=== PATIENT | male | born 2005 | race Caucasian/White ===

== ENCOUNTER 2025-02-13 19:42 | Emergency (ER) | payer SELFPAY ==
[2025-02-13 19:42] VITALS: BP 182/78; PULSE 80; RESP 18; TEMP 36.3; O2SAT 98
--- NOTE | 2025-02-13 20:06 | ED_ITS ---
HPI - General Adult General Chief complaint: Unspecified Stated complaint: rabies vaccine Time Seen by Provider: 02/13/25 19:51 Source: patient Mode of arrival: ambulatory Limitations: no limitations History of Present Illness HPI narrative: Patient is a 19-year-old male with exposure to bats at home but has not been bit by an animal. [facility] had him come to the ER to get pre exposure treatment. Onset (ago): week(s) Radiation: non-radiation Quality: other ( No pain) Pain Consistency: other ( no pain) Relieving factors: none Exacerbating factors: none Associated symptoms: denies other symptoms Treatments prior to arrival: none Related Data Allergies Allergy/AdvReac Type Severity Reaction Status Date / Time No Known Allergies Allergy Verified 02/13/25 20:09 Review of Systems Review of Systems: All systems reviewed & are unremarkable except as noted in HPI and below Constitutional: Constitutional: Reports no additional constitutional complaints Eyes: Eyes: Reports no additional eye complaints ENT: Reports system reviewed and no additional complaints, except as documented Cardiovascular: Cardiovascular: Reports no additional cardiovascular complaints Respiratory: Respiratory: Reports no additional respiratory complaints Gastrointestinal: Gastrointestinal: Reports no additional gastrointestinal complaints Genitourinary: Genitourinary: Reports no additional male genitourinary complaints Musculoskeletal: Musculoskeletal: Reports no additional musculoskeletal complaints Integumentary/Breasts: Skin/Breast: Reports system reviewed and no additional complaints, except as docu Neurologic: Reports system reviewed and no additional complaints, except as documented Psychiatric: Psychiatric: Reports no additional psychiatric complaints Endocrine: Endocrine: Reports no additional endocrine complaints Hematologic/Lymphatic: Hematologic/Lymphatic: Reports no additional hematologic/lymphatic complaints Allergic/Immunologic: Allergic/Immunologic: Reports no additional allergic/immunologic complaints Exam Const: General: cooperative, healthy appearing and comfortable HENMT: Head: normal to inspection, No palpable skull fracture present and normocephalic Eyes: General: appearance normal, both eyes and all related structures Visual Myers: normal visual myers by confrontation Alignment and Position: alignment normal Neck: Neck: normal visual inspection, full ROM and no lymphadenopathy Chest: Chest palpation & inspection: normal inspection of the chest, normal palpation of entire chest wall and normal inspection of the chest Resp: Effort & Inspection: normal respiratory effort, able to speak in complete sentences and normal respiratory pattern Cardio: Jugular venous distension: no JVD Palpation: normal PMI Rate: regular rate Rhythm: regular rhythm Heart sounds: S1 normal heart sound present and S2 normal heart sound present GI: Inspection: normal to inspection, no abdominal wall ecchymosis and no edema Back/Spine/Pelvis: Back: no CVA tenderness, No CVA tenderness and No mass Skin: General skin exam: normal color, no rashes or lesions noted and elasticity normal Neuro: General: oriented to person, oriented to place, oriented to time, Normal light touch and pain sensation and No decrease sensation to monofilament Extrem: General: normal to inspection, full ROM and capillary refill normal Psych: Appearance: grossly normal and well kempt Mental Status: mental status grossly normal Course Vital Signs Vital signs: Vital Signs Temperature 36.3 C L 02/13/25 19:42 Pulse Rate 80 02/13/25 19:42 Respiratory Rate 18 02/13/25 19:42 Blood Pressure 182/78 H 02/13/25 19:42 Pulse Oximetry 98 02/13/25 19:42 Oxygen Delivery Room Air 02/13/25 19:42 Temperature 36.9 C 02/13/25 23:51 Pulse Rate 66 02/13/25 23:51 Respiratory Rate 18 02/13/25 23:51 Blood Pressure 150/92 H 02/13/25 23:51 Pulse Oximetry 99 02/13/25 23:51 Oxygen Delivery Room Air 02/13/25 23:51 Medical Decision Making MDM Narrative Medical decision making narrative: patient is a 19-year-old male with exposure to bats but has not gotten an animal bite. He was sent to ER for pre exposure rabies treatment. Patient will get series of rabies vaccine. Patient will get rabies immunoglobulin this evening as well. This is per protocol of [facility]. We checked the protocol with infection control and pharmacy this evening. Vital Signs Vital Signs: Vital Signs Temperature 36.3 C L 02/13/25 19:42 Pulse Rate 80 02/13/25 19:42 Respiratory Rate 18 02/13/25 19:42 Blood Pressure 182/78 H 02/13/25 19:42 Pulse Oximetry 98 02/13/25 19:42 Oxygen Delivery Room Air 02/13/25 19:42 Temperature 36.9 C 02/13/25 23:51 Pulse Rate 66 02/13/25 23:51 Respiratory Rate 18 02/13/25 23:51 Blood Pressure 150/92 H 02/13/25 23:51 Pulse Oximetry 99 02/13/25 23:51 Oxygen Delivery Room Air 02/13/25 23:51 Discharge Plan Discharge Clinical Impression: Exposure to bat without known bite Patient Disposition: Home Condition: Stable Instructions: Rabies Vaccine (By injection) Patient Language: Malaysian Prescriptions: New RabAvert (PF) 2.5 unit suspension for reconstitution 2.5 unit IM ONCE Qty: 1 0RF Rx Instructions: DAY 3,7,14 Follow-up/Referrals: Thad Soliman MD [Physician] - Time of Disposition: 22:07
[2025-02-13] MEDS: RABIES VACCINE (IMOVAX) 2.5 UNITS VIAL IM (21:30)
--- NOTE | 2025-02-13 21:49 | PC.NURSE ---
pt medicated per order, see MAR. awake and alert without distress.
--- NOTE | 2025-02-13 22:19 | PC.NURSE ---
This RN spoke with ALLYOSN Armas with [facility] infection prevention. hCanda stated that the [facility] recommendations be followed for the rabies prophylaxis, which is what [facility] policy states: Patient is to receive immunoglobulin (weight based) and vaccine series of 4 total shots at days 0, 3, 7, 14. Patient is not immunocompromised, so he does not require any other shots after day 14, unless exposed, then would proceed from there. Chanda stated that she will follow up with patient in the morning to schedule the rest of the vaccine series.
--- NOTE | 2025-02-13 22:45 | PC.NURSE ---
patient update provided. plan of care discussed and presented to patient who verbalized understanding.
[2025-02-13] MEDS: RABIES IMMUNE GLOBULIN/PF 1,500 UNITS/5 ML VIAL 2660 UNITS IM (23:38)
[2025-02-13 23:51] VITALS: BP 150/92; PULSE 66; RESP 18; TEMP 36.9; O2SAT 99
== END 2025-02-14 00:01 | disposition home or self-care (01) ==
PROVIDERS: Emergency Provider Emergency Medicine; Referring Provider Internal Medicine
DX: Z20.3 Contact with and (suspected) exposure to rabies (principal); Z23 Encounter for immunization
CPT/HCPCS: 90375; 90471; 90675; 96372; 99283

== ENCOUNTER 2025-02-16 07:35 | Outpatient (CLI) | payer SELFPAY ==
[2025-02-16 07:53] VITALS: BP 134/80; PULSE 80; RESP 14; TEMP 36.4; O2SAT 97; BMI 34.7
[2025-02-16] MEDS: RABIES VACCINE (IMOVAX) 2.5 UNITS VIAL IM (08:06)
--- NOTE | 2025-02-27 11:01 | PC.NURSE ---
02/20 Left message that missed Rabies vaccine- Please come 02/21/25 at 0730 am. 02/21 No show no call.
== END 2025-02-16 07:36 | disposition home or self-care (01) ==
PROVIDERS: Visit Provider Emergency Medicine
DX: Z20.3 Contact with and (suspected) exposure to rabies (principal); Z23 Encounter for immunization
CPT/HCPCS: 90471; 90675